=== PATIENT | male | born 1960 | race Caucasian/White ===

== ENCOUNTER 2019-02-16 15:45 | Emergency (ER) | payer MEDICARE, OTHER ==
[~2019-02-16] VITALS: Ht 172.7 cm; Wt 68.2 kg
[~2019-02-16 15:45] MED LIST: A20IH1 NEB; ACET-2902 PO; ASPI81 PO; BISA10SU11 PR; DEXT50DI6 IV; DSS100 PO; HEPA500018 SQ; INSNOV SQ; PANT40TA25 PO
[2019-02-16] MEDS ORDERED: URSO500T10 PO (16:05)
[2019-02-16] MEDS ORDERED: LOSA50TA64 PO (16:05)
[2019-02-16] MEDS ORDERED: MIRT15 PO (16:05)
[2019-02-16] MEDS ORDERED: HYDR-2924 PO (16:05)
[2019-02-16] MEDS ORDERED: CINA30 PO (16:05)
[2019-02-16] MEDS ORDERED: MELA5TAB3 PO (16:05)
[2019-02-16] MEDS ORDERED: ESCI10TA PO (16:05)
[2019-02-16] MEDS ORDERED: SODIUM PHOS/SODIUM BIPHOS 133 ML ENEMA PR ONE (16:15)
[2019-02-16] MEDS ORDERED: MORPHINE SULFATE 2 MG/ML SYRINGE IVP ONE ×2 (17:15→17:45)
[2019-02-16 17:34] LABS: BASOPHILS % (AUTO) 0.9 % (0.0-2.0); HEMATOCRIT 46.6 % (41-53); HEMOGLOBIN 14.9 g/dL (13.5-17.5); LYMPHOCYTES % (AUTO) 12.6 % (22.0-44.0); MEAN CORPUSCULAR HEMOGLOBIN 29.9 pg (26.0-34.0); MEAN CORPUSCULAR HGB CONC 31.9 G/dL (31.0-37.0); MEAN CORPUSCULAR VOLUME 94 fL (80-100); MONOCYTES # (AUTO) 0.5 K/uL (0.1-1.0); MONOCYTES % (AUTO) 5.6 % (2.0-9.0); NEUTROPHILS # (AUTO) 6.7 K/uL (1.8-7.7); NEUTROPHILS % (AUTO) 79.9 % (40.0-70.0); PLATELET COUNT (AUTO) 234 K/uL (150-450); RED BLOOD CELL COUNT(AUTO) 4.97 MIL/uL (4.50-5.90); RED CELL DISTRIBUTION WIDTH 16.4 % (11.5-14.5)
[2019-02-16 17:55] LABS: CALCIUM, TOTAL 7.5 mg/dL (8.8-10.5); CREATININE 5.78 mg/dL (0.60-1.30)
[2019-02-16] MEDS ORDERED: HYDROmorphone 2 MG/ML SYRINGE IVP ONE (18:00)
[2019-02-16 18:01] LABS: ALBUMIN 3.8 g/dL (3.4-5.0); BILIRUBIN,TOTAL 0.6 mg/dL (0.1-1.0); TOTAL PROTEIN, SERUM 8.9 g/dL (6.4-8.2)
[2019-02-16 18:06] LABS: INR 1.1 (0.9-1.1)
[2019-02-16] MEDS ORDERED: PIPERACILLIN/TAZO 3.375 GM/D5W 50 ML IV ONE (18:15)
[2019-02-16] MEDS ORDERED: SODIUM CHLORIDE 0.9% 500 ML IV ONE (19:15)
[2019-02-16 20:01] VITALS: BP 143/61
== END 2019-02-16 21:00 | disposition short-term general hospital (02) ==
LOC: EMS 15:46
DX: K63.1 Perforation of intestine (nontraumatic) (principal); K59.00 Constipation, unspecified; E11.22 Type 2 diabetes mellitus with diabetic chronic kidney disease; I12.0 Hypertensive chronic kidney disease with stage 5 chronic kidney disease or end stage renal disease; N18.6 End stage renal disease; F41.9 Anxiety disorder, unspecified; F32.9 Major depressive disorder, single episode, unspecified; Z99.2 Dependence on renal dialysis; Z98.890 Other specified postprocedural states; Z79.4 Long term (current) use of insulin; Z79.899 Other long term (current) drug therapy; Z88.8 Allergy status to other drugs, medicaments and biological substances
CPT/HCPCS: 36415; 74176; 80053; 83605; 85025; 85610; 85730; 86850; 86900; 86901; 96365; 96375; 99285; J1170; J2270; J2543; J7040